=== PATIENT | male | born 1975 | race Caucasian/White ===

== ENCOUNTER 2018-07-29 10:26 | Outpatient (CLI) | payer OTHER, SELFPAY ==
[2018-07-29 11:55] LABS: Hemoglobin A1C 7.7 % (4.5-6.2)
== END 2018-07-29 10:46 ==
PROVIDERS: PCP Emergency Medicine; Visit Provider Emergency Medicine
DX: E11.9 Type 2 diabetes mellitus without complications (principal)
CPT/HCPCS: 36415; 83036

== ENCOUNTER 2019-02-17 09:50 | Outpatient (CLI) | payer OTHER, SELFPAY ==
--- NOTE | 2019-02-17 15:34 | DI.RAD_ITS ---
SYMPTOM/DIAGNOSIS: RT SHOULDER PAIN RIGHT SHOULDER: Three views. Comparison 03/01/15 Since the prior examination there has been resection of the distal clavicle. The bones are intact and normally mineralized. The soft tissues are unremarkable. IMPRESSION: No acute abnormality.
== END 2019-02-17 10:10 ==
PROVIDERS: PCP Emergency Medicine; Visit Provider Physician Assistant
DX: M75.81 Other shoulder lesions, right shoulder (principal); M25.511 Pain in right shoulder
CPT/HCPCS: 73030

== ENCOUNTER 2019-03-19 14:37 | Outpatient (CLI) | payer OTHER, SELFPAY ==
[2019-03-19 15:35] LABS: Hemoglobin A1C 7.1 % (4.5-6.2)
== END 2019-03-19 14:57 ==
PROVIDERS: PCP Emergency Medicine; Visit Provider Emergency Medicine
DX: E11.9 Type 2 diabetes mellitus without complications (principal)
CPT/HCPCS: 36415; 83036

== ENCOUNTER 2019-07-01 15:43 | Outpatient (CLI) | payer OTHER, SELFPAY ==
[2019-07-01 16:41] LABS: Hemoglobin A1C 7.4 % (4.5-6.2)
[2019-07-01 17:18] LABS: ALT 54 U/L (16-63); AST 32 U/L (15-37); Albumin 4.2 g/dL (3.4-5.0); Alkaline Phosphatase 84 U/L (46-116); Anion Gap 11.4 mmol/L (3-11); BUN 20 mg/dL (7-18); Bilirubin, Total 0.7 mg/dL (0.2-1.0); CO2 28.6 mmol/L (21.0-32.0); CREATININE 0.84 mg/dL (0.70-1.30); Calcium 9.2 mg/dL (8.5-10.1); Calculated LDL 36 mg/dL; Chloride 99 mmol/L (98-107); Cholesterol 133 mg/dL (<200); Glucose 109 mg/dL (74-106); HDL Cholesterol 25 mg/dL (40-60); Potassium 4.1 mmol/L (3.5-5.1); Sodium 139 mmol/L (136-145); Total Protein 7.5 g/dL (6.4-8.2); Triglyceride 362 mg/dL (<150)
== END 2019-07-01 16:03 ==
PROVIDERS: PCP Nurse Practitioner Family; Visit Provider Nurse Practitioner Family
DX: E11.9 Type 2 diabetes mellitus without complications (principal)
CPT/HCPCS: 36415; 80053; 80061; 83036

== ENCOUNTER 2020-04-30 22:20 | Outpatient (REF) | payer OTHER, SELFPAY ==
[2020-04-30 21:36] LABS: Anion Gap 4.8 mmol/L (3-11); BUN 12 mg/dL (7-18); CO2 31.2 mmol/L (21.0-32.0); CREATININE 0.73 mg/dL (0.70-1.30); Calcium 8.9 mg/dL (8.5-10.1); Calculated LDL 48 mg/dL (<100); Chloride 102 mmol/L (98-107); Cholesterol 119 mg/dL (<200); Glucose 135 mg/dL (74-106); HDL Cholesterol 26 mg/dL (40-60); Potassium 3.8 mmol/L (3.5-5.1); Sodium 138 mmol/L (136-145); TSH (W/Ref FT4) 1.73 uIU/mL (0.36-3.74); Triglyceride 225 mg/dL (<150)
[2020-04-30 21:55] LABS: Hemoglobin A1C 7.5 % (<5.7)
== END 2020-04-30 22:40 ==
LOC: LBN 22:20
PROVIDERS: PCP Nurse Practitioner Family; Visit Provider Nurse Practitioner Family
DX: R53.83 Other fatigue (principal); E11.9 Type 2 diabetes mellitus without complications
CPT/HCPCS: 80048; 80061; 84403; 83036; 84443; 85025

== ENCOUNTER 2020-06-10 01:50 | Emergency (ER) | payer OTHER, SELFPAY ==
[2020-06-10 01:57] VITALS: BP 139/87; PULSE 95; RESP 18; TEMP 36.8; O2SAT 99
--- NOTE | 2020-06-10 02:02 | W.ED.GENAD ---
Discharge Plan Disposition Patient Disposition: HOME Condition: Good Discharge Details Clinical Impression: Pharyngitis Primary Care Provider: Deidre Strauss ED Provider: Jeremi Cardona Home Meds and New Rx's Prescriptions: Continued atorvastatin 20 mg tablet 20 mg PO DAILY Qty: 90 RF: 4 lisinopril 5 mg tablet 5 mg PO DAILY Qty: 90 RF: 4 metformin 500 mg tablet 1,000 mg PO BID Qty: 360 RF: 4 metoprolol succinate 25 mg tablet extended release 24 hr 25 mg PO DAILY Qty: 90 RF: 4 (DME) OneTouch Ultra Blue Test Strip Strip See Rx Instructions .ROUTE .MEDSUPPLY Qty: 200 RF: 4 (DME) lancets [OneTouch UltraSoft Lancets] Misc 1 ea Miscellaneous DAILY Qty: 200 RF: 4 Fish Oil 1 EACH capsule 1 ea PO DAILY RF: 0 aspirin [Aspir-81] 81 MG tablet,delayed release (DR/EC) 81 mg PO DAILY RF: 0 Jardiance 25 mg tablet 12.5 - 25 mg PO DAILY Qty: 90 RF: 4 Discharge Instructions Instructions: Pharyngitis (ED) Additional Instructions: At this time your strep test is negative for evidence of a bacterial infection. It is likely that the irritation is secondary to a virus. Usually improves after 72 hours. Please take 1000 mg of Tylenol every 6 hours and 800 mg of ibuprofen every 6 hours as needed to help with the pain. Please gargle with salt water. If you notice any worsening of your symptoms, or any new symptoms such as vomiting, diarrhea, fever, chills, shortness of breath, chest pain, numbness, weakness, or fainting , please return immediately to the emergency department for reevaluation. Please follow up with your primary care provider as soon as possible for reassessment and reevaluation. As always, it was a pleasure participating in your medical care today. Referrals: Deidre Strauss NP [Primary Care Provider] - Medical Decision Making 44-year-old male presents today for evaluation of throat pain. Patient states that for the last day or so he has had a mild sore throat, he states however this evening he was notably worsening of unable to sleep so he came in for further evaluation. He did take ibuprofen at dinnertime, and felt that this did not improve his symptoms. Denies any severe fatigue, abdominal pain, fever or chills. He has had mono in the past and states that this feels notably different. He denies any headache or neck pain. No other complaints at this time. Physical exam demonstrates no tonsillar swelling or edema, no erythema in the posterior oropharynx. Mild cobblestoning in the posterior oropharynx. There is a small amount of white spots noted on the tonsils, however these appear to resemble tonsillitis rather than tonsillar exudate. Rapid strep test was negative. We will send for culture as a precaution. signs and symptoms consistent with viral upper respiratory infection/pharyngitis. Will recommend Tylenol, Motrin salt water gargles. Symptoms inconsistent with mono or fungal etiology. I have extensively reviewed the treatment plan and discharge instructions with the patient. I have addressed all patient concerns at this time. The patient was made aware of what symptoms to monitor for that would warrant a return to the emergency department. Discussed the plan with the patient, they demonstrate verbal understanding and agreement with our assessment and plan at this time. HPI General Date/Time Provider Initiated Documentation: 06/10/20 01:53. HPI Narrative: 44-year-old male presents today for evaluation of throat pain. Patient states that for the last day or so he has had a mild sore throat, he states however this evening he was notably worsening of unable to sleep so he came in for further evaluation. He did take ibuprofen at dinnertime, and felt that this did not improve his symptoms. Denies any severe fatigue, abdominal pain, fever or chills. He has had mono in the past and states that this feels notably different. He denies any headache or neck pain. No other complaints at this time. Related Data Home Medications Medication Instructions Recorded Confirmed Fish Oil 1 ea PO DAILY 08/14/14 07/03/19 aspirin [Aspir-81] 81 mg PO DAILY 12/27/16 07/03/19 atorvastatin 20 mg tablet 20 mg PO DAILY #90 tab 04/23/20 04/23/20 lisinopril 5 mg tablet 5 mg PO DAILY #90 tab 04/23/20 04/23/20 metformin 500 mg tablet 1,000 mg PO BID #360 tab-cap 04/23/20 04/23/20 metoprolol succinate 25 mg 25 mg PO DAILY #90 tab 04/23/20 04/23/20 tablet,extended release 24 hr blood sugar diagnostic #200 ea 04/30/20 04/30/20 lancets #200 ea 05/02/20 05/02/20 empagliflozin 25 mg tablet 12.5 - 25 mg PO DAILY #90 tab 05/06/20 Previous Rx's Medication Instructions Recorded atorvastatin 20 mg tablet 20 mg PO DAILY #90 tab 04/23/20 lisinopril 5 mg tablet 5 mg PO DAILY #90 tab 04/23/20 metformin 500 mg tablet 1,000 mg PO BID #360 tab-cap 04/23/20 metoprolol succinate 25 mg 25 mg PO DAILY #90 tab 04/23/20 tablet,extended release 24 hr blood sugar diagnostic #200 ea 04/30/20 lancets #200 ea 05/02/20 empagliflozin 25 mg tablet 12.5 - 25 mg PO DAILY #90 tab 05/06/20 Allergies Allergy/AdvReac Type Severity Reaction Status Date / Time venom-honey bee Allergy Intermediate Itching Unverified 07/03/19 15:53 bleomycin Allergy Intermediate Swelling/Ed Uncoded 07/03/19 15:53 phan General Stated Complaint: ThroatFB WILLIAM: 5 Review of Systems All systems reviewed & are unremarkable except as noted in HPI and below PFSH Medical History Coronary artery disease STEMI d/t embolus 06/09/11 Essential hypertension Hodgkin's lymphoma, nodular sclerosis (~05/2011) Stage III BS, IPSS = 4 S/p ICE, ABVD, [place] [facility] [place]/u in [address] elevation myocardial infarction (STEMI) of inferior wall (~05/2011) 100% occlusion of RCA d/t ?embolus, s/p PCI with thrombectomy and bare metal stent placement Stented coronary artery Bare metal stent to RCA Type 2 diabetes mellitus Surgical History S/P appendectomy S/P arthroscopy of right shoulder (06/29/15) Glenohumeral debridement with labral debridement. Biceps tenodesis, subpectoral. Subacromial decompression with acromioplasty. Open distal clavicle excision S/P right coronary artery (RCA) stent placement (06/09/11) Family History Mother Hyperlipidemia Hypertension Father , at 65 from [place] Heart disease Myocardial infarction x 3 Sister Heart disease Has pacemaker Sister No problems noted. Daughter ASD (atrial septal defect) Asthma Depression Maternal Grandfather Alcohol abuse Maternal Grandmother No problems noted. Paternal Grandfather Leukemia Paternal Grandmother No problems noted. Social History Smoking/Tobacco Use Status: Former Tobacco Use Smoking risk assessment performed?: Yes Alcohol Intake: current Alcohol Intake frequency: a few times a week Drug use: Occasionally Substance use type: marijuana Do you feel safe at home: Yes Do you feel safe in your relationship?: Yes Exam Narrative Exam Narrative: 1.Const: Well-nourished, Well-developed, appearing stated age 2.Eyes: PERRL, no conjunctival injection, and symmetrical lids. 3.ENT: Atraumatic external nose and ears. Moist MM. Neck: Symmetric, trachea midline, No thyromegaly. Posterior oropharynx demonstrates no tonsillar enlargement, no erythema or edema. Minimal cobblestoning the posterior oropharynx. Small amount of white on the left posterior tonsil and a small amount on the right, and these appear to resemble tonsiliths rather than tonsillar exudate. No significant cervical lymphadenopathy. 4.CVS: +S1/S2, No murmurs or gallops. Peripheral pulses 2+ and equal in all extremities. Brisk capillary refill in all extremities. 5.RESP: Unlabored respiratory effort. Clear to auscultation bilaterally. No wheezes rales or rhonchi 6.GI: Soft, Nontender/Nondistended, No hepatosplenomegaly. No guarding or rebound. 7.MSK: Normocephalic/Atraumatic, Extremities w/o deformity or ttp No cyanosis or clubbing, Normal movement of all extremities 8.Skin: Warm, Dry. No rashes or lesions. 9.Neuro: grinder dresser II-XII grossly intact. Sensation grossly intact, no focal neurologic deficits. 10.Psych: (AAO) x3. Appropriate mood and affect Course Vital Signs Vital signs: Vital Signs Temperature 36.8 C 06/10/20 01:57 Pulse 95 H 06/10/20 01:57 Respiratory Rate 18 06/10/20 01:57 Blood Pressure 139/87 06/10/20 01:57 Pulse Oximetry 99 06/10/20 01:57 Temperature 36.8 C 06/10/20 01:57 Pulse 95 H 06/10/20 01:57 Respiratory Rate 18 06/10/20 01:57 Blood Pressure 139/87 06/10/20 01:57 Blood Pressure Position Sitting 06/10/20 01:57 Pulse Oximetry 99 06/10/20 01:57 Oxygen Delivery Method Room Air 06/10/20 01:57 Oxygen Flow Rate 0 06/10/20 01:57
== END 2020-06-10 02:19 | disposition home or self-care (01) ==
PROVIDERS: Emergency Provider Student in an Organized Health Care Education/Training Program; PCP Nurse Practitioner Family
DX: J02.0 Streptococcal pharyngitis (principal); B95.4 Other streptococcus as the cause of diseases classified elsewhere; I10 Essential (primary) hypertension; E11.9 Type 2 diabetes mellitus without complications; Z79.84 Long term (current) use of oral hypoglycemic drugs
CPT/HCPCS: 87880; 99282; 87081; 99283

== ENCOUNTER 2020-06-21 20:00 | Outpatient (REF) | payer OTHER, SELFPAY ==
[2020-06-21 22:49] LABS: Abs Immature Grans 0.02 10^3/uL (0.0-0.06); Absolute Basophil Count 0.04 10^3/uL (0.0-0.2); Absolute Eosinophil Count 0.18 10^3/uL (0.0-0.7); Absolute Lymphocyte Count 2.58 10^3/uL (1.2-3.4); Absolute Monocyte Count 0.44 10^3/uL (0.1-0.8); Absolute Neutrophil Count 5.72 10^3/uL (1.2-6.7); Basophils % 0.4; HCT 41.9 % (40.0-50.0); HGB 13.9 g/dL (13.5-17.5); Immature Grans % 0.2; Lymphocytes % 28.7; MCH 27.7 pg (27.0-33.0); MCHC 33.2 % (32.0-36.0); MCV 83.5 fL (80-95); MPV 9.9 fL (8.0-11.0); Monocytes % 4.9; Neutrophils % 63.8; Nucleated RBC 0 %; Platelet Count 220 10^3/uL (130-400); RBC 5.02 10^6/uL (4.36-5.78); RDW 13.2 % (11.8-14.1); RDW-SD 39.7 fL; WBC 8.98 10^3/uL (4.4-10.8)
[2020-06-21 22:54] LABS: Anion Gap 11.8 mmol/L (3-11); BUN 12 mg/dL (7-18); CO2 25.2 mmol/L (21.0-32.0); CREATININE 0.79 mg/dL (0.70-1.30); Calcium 8.6 mg/dL (8.5-10.1); Chloride 105 mmol/L (98-107); Glucose 181 mg/dL (74-106); Sodium 142 mmol/L (136-145)
== END 2020-06-21 20:20 ==
LOC: NCHCN 20:00
PROVIDERS: PCP Nurse Practitioner Family; Visit Provider Nurse Practitioner Family
DX: E11.9 Type 2 diabetes mellitus without complications (principal); Z85.71 Personal history of Hodgkin lymphoma
CPT/HCPCS: 80048; 85025

== ENCOUNTER 2020-11-04 01:56 | Outpatient (CLI) | payer BC, SELFPAY ==
[2020-11-05 12:52] LABS: COVID-19 RT-PCR UVMMC Result Negative (Negative)
== END 2020-11-04 01:57 | disposition home or self-care (01) ==
LOC: LBO 01:56
PROVIDERS: PCP Nurse Practitioner Family; Visit Provider Nurse Practitioner Family
DX: Z20.822 Contact with and (suspected) exposure to COVID-19 (principal)
CPT/HCPCS: U0003

== ENCOUNTER 2021-11-17 16:07 | Outpatient (REF) | payer BC, SELFPAY ==
[2021-11-17 17:45] LABS: Hemoglobin A1C 5.8 % (<5.7)
[2021-11-17 18:44] LABS: Anion Gap 7.3 mmol/L (3-11); BUN 20 mg/dL (7-18); CO2 28.7 mmol/L (21.0-32.0); CREATININE 0.8 mg/dL (0.70-1.30); Calcium 9.2 mg/dL (8.5-10.1); Calculated LDL 78 mg/dL (<100); Chloride 104 mmol/L (98-107); Cholesterol 155 mg/dL (<200); Glucose 100 mg/dL (74-106); HDL Cholesterol 38 mg/dL (40-60); Potassium 4.2 mmol/L (3.5-5.1); Sodium 140 mmol/L (136-145); Triglyceride 195 mg/dL (<150)
== END 2021-11-17 16:08 | disposition home or self-care (01) ==
LOC: LBN 16:07
PROVIDERS: PCP Nurse Practitioner Family; Visit Provider Nurse Practitioner Family
DX: E11.9 Type 2 diabetes mellitus without complications (principal)
CPT/HCPCS: 80048; 80061; 83036

== ENCOUNTER 2023-02-21 15:29 | Outpatient (CLI) | payer BC, SELFPAY ==
--- NOTE | 2023-02-21 14:45 | DI.RAD_ITS ---
Exam(s) XR SHOULDER LT COMPLETE 2+V EXAM: XR SHOULDER LT COMPLETE 2+V CLINICAL HISTORY: Left shoulder pain. TECHNIQUE: 2D digital imaging was performed of the left shoulder. Two images were obtained. AP and axillary views were obtained. COMPARISON: No priors for comparison. FINDINGS: BONES: No acute fracture is present. No bony destructive lesion is seen. JOINTS: No dislocation present. Mild degenerative changes are seen at the acromioclavicular joint. T he glenohumeral joint is well maintained. SOFT TISSUE: Normal. IMPRESSION: Mild degenerative changes of the AC joint. DATA REPOSITORY: RADIATION DOSE DELIVERED:
== END 2023-02-21 15:30 | disposition home or self-care (01) ==
LOC: DIORS 15:29
PROVIDERS: PCP Nurse Practitioner Family; Referring Provider Nurse Practitioner Family; Visit Provider Student in an Organized Health Care Education/Training Program
DX: M19.012 Primary osteoarthritis, left shoulder
CPT/HCPCS: 73030

== ENCOUNTER → 2023-03-12 02:07 | Outpatient (CLI) | payer BC, SELFPAY ==
--- NOTE | 2023-03-12 08:00 | DI.MRI_ITS ---
Exam(s) MR UPPER JOINT LT WO EXAM: MR UPPER JOINT LT WO CLINICAL HISTORY: LEFT SHOULDER PAIN,paralabral cyst, [id number] TECHNIQUE: Multiplanar multisequence MRI of the shoulder was performed. COMPARISON: CR XR SHOULDER LT COMPLETE 2+V from 02/21/2023 FINDINGS: MARROW:There is no evidence of fracture, Hill-Sachs deformity, bony Bankart lesion, nor ominous osseo us lesions. There are small degenerative subarticular cysts on the posterolateral aspect of the jose ral head subjacent to the infraspinatus insertion ROTATOR CUFF MECHANISM: AC JOINT/ACROMIUM: There are moderate degenerative changes in the AC joint.. There is no evidence of os acromiale. Supraspinatus: Intact. No evidence of tear nor muscle atrophy. Infraspinatus: There is abnormal signal in the muscle belly of the infraspinatus predominately proxim al to the musculotendinous junction. The tendon of the infraspinatus appears unremarkable. No evide nce of infraspinatus tendon tear and there is no atrophy of the muscle. Teres Minor: There is also some mild increased signal seen within the muscle belly of the teres minor . Tendon is intact. No tear. No atrophy Subscapularis/anterior cuff: Intact. No abnormal signal at the level of the multipennate insertional fibers. No significant tear nor atrophy. BICEPS TENDON: Not displaced from its normal position within the intertubercular groove. No evidence of tear. No tenosynovitis. LABRUM: No labral tear identified. No evidence of paralabral cyst. LABROLIGAMENTOUS/CAPSULAR COMPLEX: There is no evidence of avulsion of the anterior-inferior labrum, capsule, inferior glenohumeral liga ment complex nor disruption of the scapular periosteum to suggest the presence of a Bankart lesion. GLENOHUMERAL JOINT: No joint effusion nor obvious loose intra-articular bodies. No chondral defects. No osteophytes. No degenerative subarticular cysts. No evidence of capsular tear. The inferior gle nohumeral ligament is intact. QUADRILATERAL SPACE: No evidence of mass in the region of the axillary nerve and dorsal circumflex hu meral vessels. Visualized triceps muscle at this level appears unremarkable. IMPRESSION: 1. The main findings here are in the posterior rotator cuff musculature, specifically in the muscle b alida of the infraspinatus where there is lung to truly orientated signal abnormality within the muscl e belly at and proximal to the musculotendinous junction consistent with muscle injury/strain, withou t evidence of formed fluid collection nor muscle atrophy. The infraspinatus tendon and attachment at the greater tuberosity appear unremarkable. 2. Similar but less findings noted in the teres minor muscle. 3. No abnormalities evident in the supraspinatus tendon nor in the anterior cuff-subscapularis. 4. No obvious biceps nor labral tears. 5. No obvious degenerative changes effusion of the glenohumeral joint. No loose intra-articular bod ies. 6. Moderate degenerative changes are noted in the AC joint. DATA REPOSITORY:
== END ==
PROVIDERS: PCP Nurse Practitioner Family; Visit Provider Student in an Organized Health Care Education/Training Program
DX: X58.XXXA Exposure to other specified factors, initial encounter; S43.432A Superior glenoid labrum lesion of left shoulder, initial encounter
CPT/HCPCS: 73221

== ENCOUNTER 2024-04-11 21:47 | Outpatient (CLI) | payer BC, SELFPAY ==
[2024-04-11 16:05] LABS: HCT 44.8 % (40.0-50.0); HGB 15.2 g/dL (13.5-17.5); MCH 28.4 pg (27.0-33.0); MCHC 33.9 % (32.0-36.0); MCV 84 fL (80-95); MPV 9.1 fL (8.0-11.0); Platelet Count 171 10^3/uL (130-400); RBC 5.35 10^6/uL (4.36-5.78); RDW 13.1 % (11.8-14.1); RDW-SD 39.7 fL; WBC 8.64 10^3/uL (4.4-10.8)
[2024-04-11 16:16] LABS: Hemoglobin A1C 7.6 % (<5.7)
[2024-04-11 16:47] LABS: ALT 43 U/L (16-63); AST 18 U/L (15-37); Albumin 4.1 g/dL (3.4-5.0); Alkaline Phosphatase 89 U/L (46-116); Anion Gap 9.6 mmol/L (3-11); BUN 15 mg/dL (7-18); Bilirubin, Total 0.39 mg/dL (0.2-1.0); CO2 26.4 mmol/L (21.0-32.0); CREATININE 0.9 mg/dL (0.70-1.30); Calcium 9.5 mg/dL (8.5-10.1); Chloride 105 mmol/L (98-107); Estimated GFR 105.35 (mL/min/1.73m2); Glucose 125 mg/dL (74-106); Potassium 3.9 mmol/L (3.5-5.1); Sodium 141 mmol/L (136-145); TSH (W/Ref FT4) 2.06 uIU/mL (0.36-3.74); Total Protein 7.4 g/dL (6.4-8.2)
[2024-04-13 12:40] LABS: HIV-1/2 Ag & Ab Screen Negative (Negative)
[2024-04-14 10:19] LABS: Hepatitis C Ab w Rflx HCV PCR Negative (Negative)
[2024-04-14 11:24] LABS: HBs Antibody, Quant <3.1 mIU/mL (See Note); Hep B Surface Ab Negative (See Note); Hepatitis B Core Antibody Negative (Negative); Hepatitis B Surface Antigen Negative (Negative)
== END 2024-04-11 21:48 | disposition home or self-care (01) ==
LOC: LBO 04-13 21:48
PROVIDERS: PCP Nurse Practitioner Family; Visit Provider Nurse Practitioner Family
DX: Z11.59 Encounter for screening for other viral diseases (principal); Z85.71 Personal history of Hodgkin lymphoma; Z11.4 Encounter for screening for human immunodeficiency virus [HIV]; E11.9 Type 2 diabetes mellitus without complications
CPT/HCPCS: 36415; 80053; 85027; 86704; 86706; 86803; 87340; 87389; 83036; 84443

== ENCOUNTER 2025-06-08 15:27 | Outpatient (CLI) | payer OTHER, SELFPAY ==
[2025-06-08 15:45] LABS: Abs Immature Grans 0.02 10^3/uL (0.0-0.06); HCT 41.3 % (40.0-50.0); HGB 13.9 g/dL (13.5-17.5); Immature Grans % 0.3 %; MCH 28.0 pg (27.0-33.0); MCHC 33.7 % (32.0-36.0); MCV 83 fL (80-95); MPV 8.7 fL (8.0-11.0); Platelet Count 188 10^3/uL (130-400); RBC 4.96 10^6/uL (4.36-5.78); RDW 12.8 % (11.8-14.1); RDW-SD 39.0 fL; WBC 7.80 10^3/uL (4.4-10.8)
[2025-06-08 16:45] LABS: Anion Gap 9.7 mmol/L (3-11); BUN 11 mg/dL (7-18); CO2 28.3 mmol/L (21.0-32.0); Calcium 9.0 mg/dL (8.5-10.1); Chloride 102 mmol/L (98-107); Glucose 130 mg/dL (74-106); Potassium 4.2 mmol/L (3.5-5.1); Sodium 140 mmol/L (136-145); TSH (W/Ref FT4) 1.89 uIU/mL (0.36-3.74)
== END 2025-06-08 15:28 | disposition home or self-care (01) ==
LOC: LBO 15:28
PROVIDERS: PCP Nurse Practitioner Family; Visit Provider Nurse Practitioner Family
DX: Z00.00 Encounter for general adult medical examination without abnormal findings (principal); I10 Essential (primary) hypertension; E11.9 Type 2 diabetes mellitus without complications; R53.83 Other fatigue
CPT/HCPCS: 36415; 80048; 84403; 84443; 85025